=== PATIENT | male | born 1960 | race Caucasian/White ===

== ENCOUNTER → 2018-01-28 | Outpatient (CLI) | payer OTHER ==
[~2018-01-28] MED LIST: ENDOCET 5-3251 EACH PO; LOVENOX40 MG/0.4 SC
== END | disposition home or self-care (01) ==
LOC: CDC 10:48
DX: Z01.810 Encounter for preprocedural cardiovascular examination (principal); K40.90 Unilateral inguinal hernia, without obstruction or gangrene, not specified as recurrent
CPT/HCPCS: 93000

== ENCOUNTER 2018-02-13 07:53 | Day surgery (SDC) | payer OTHER ==
[~2018-02-13] VITALS: Ht 193 cm; Wt 86.2 kg
[~2018-02-13 07:53] MED LIST changes: +ZYRTEC10 M3 PO
[2018-02-13 08:32] VITALS: BP 149/88
[2018-02-13] MEDS ORDERED: OXAYDO5 MG PO (11:34)
[2018-02-13 12:25] VITALS: BP 156/83
[2018-02-13 13:11] VITALS: BP 143/78
== END 2018-02-13 13:30 | disposition home or self-care (01) ==
LOC: SDC 07:53
PROC: 0YU50JZ Supplement Right Inguinal Region with Synthetic Substitute, Open Approach (ICD-10-PCS; principal; 2018-02-13)
DX: K40.90 Unilateral inguinal hernia, without obstruction or gangrene, not specified as recurrent (principal)
CPT/HCPCS: C1781; J0690; J1100; J1885; J2250; J2405; J3010; J3475; J7120; Q0175; S0020